=== PATIENT | female | born 1945 | race Caucasian/White ===

== ENCOUNTER → 2016-03-31 | Outpatient (CLI) | payer OTHER ==
--- NOTE | 2016-03-31 09:50 | CT ---
CT Right Lower Extremity With Attention Right Hip March 31, 2016 0915 hours History: Preoperative evaluation for right hip arthroplasty. Pain. Technique: Spiral imaging was obtained through the right hip at 1.25 mm slice thickness along with sp iral imaging through the right knee at 2.5 mm slice thickness. Data was transmitted for subsequent [facility] hip replacement. Dose reduction techniques were performed. Findings: The right hip joint demonstrates severe hip joint space narrowing with osteophyte formation , subchondral cyst formation, and hip joint space narrowing. 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 Prior pin tracts are present in the femoral head and neck T he musculature about the hips is normal in appearance. The visualized pelvic structures are normal in appearance. Imaging through the knees demonstrates mild degenerative joint disease. The musculature about the kn ees appears to be normal. Impression: Degenerative changes about the right hip, as detailed above. Central cortical collapse is present consistent with AVN, in the region of the prior pin tracts for previous hip pinning. Data tr ansmitted for subsequent [facility] hip replacement surgery. I reviewed this with Dr. Maverick Jj who agrees with the above findings. A message was left with the [employer] medical billing manager March 31, 2016 0951 hours
== END ==
LOC: FIMAGING 08:51
PROVIDERS: ATTEND Physician Assistant
DX: Z01.818 Encounter for other preprocedural examination (principal); M16.11 Unilateral primary osteoarthritis, right hip

== ENCOUNTER 2016-04-21 08:52 | Inpatient (IN) | payer OTHER ==
[~2016-04-21 08:52] MED LIST: BACITRACIN 50,000 UNITS/10 ML SYR IRR ONE; CITRATE DEXTROSE SOLN 500 ML BAG ONE; POLYMYXIN B SULFATE 500,000 UNIT/10 ML SYR IRR ONE
[2016-04-21] MEDS ORDERED: ROPI/epiNEPH/KETOROLAC/morphINE JOINT COCKTAIL IU ONE (09:30)
[2016-04-21] MEDS ORDERED: CEFAZOLIN 2 GM/DEXTR 100 ML IV ONE (09:30)
[2016-04-21] MEDS ORDERED: ACETAMINOPHEN 325 MG TAB PO ONE (09:30)
[2016-04-21] MEDS ORDERED: FAMOTIDINE 20 MG TAB PO ONE (09:30)
[2016-04-21] MEDS ORDERED: CHLORHEXIDINE GLUC HIBICLENS 118 ML BTL TP ONE (09:30)
[2016-04-21] MEDS ORDERED: LIDOCAINE 1% 5 ML SDV ONE (09:49)
[2016-04-21] MEDS ORDERED: ONDANSETRON 4 MG/2 ML VIAL IVP PRN (10:22)
[2016-04-21] MEDS ORDERED: DIAZEPAM 5 MG TAB PO PRN (10:22)
[2016-04-21] MEDS ORDERED: MAGNESIUM HYDROXIDE 30 ML UDCUP PO PRN (10:22)
[2016-04-21] MEDS ORDERED: DIPHENOXYLATE/ATROPINE LOMOTIL 1 TAB PO PRN (10:22)
[2016-04-21] MEDS ORDERED: PHARMACY PAIN CONSULT 1 EA MISC PRN (10:22)
[2016-04-21] MEDS ORDERED: LACTULOSE 20 GM/30 ML UDCUP PO PRN (10:22)
[2016-04-21] MEDS ORDERED: ONDANSETRON DISINTEGRATING 4 MG TAB PO PRN (10:22)
[2016-04-21] MEDS ORDERED: PROMETHAZINE HCL 25 MG SUPPR PR PRN (10:22)
[2016-04-21] MEDS ORDERED: diphenhydrAMINE 25 MG CAP PO PRN (10:22)
[2016-04-21] MEDS ORDERED: METOCLOPRAMIDE 10 MG/2 ML VIAL IVP PRN (10:22)
[2016-04-21] MEDS ORDERED: PROMETHAZINE HCL 25 MG/ML INJ IVP PRN (10:22)
[2016-04-21] MEDS ORDERED: BISACODYL 10 MG SUPP PR PRN (10:22)
[2016-04-21] MEDS ORDERED: traMADol 50 MG TAB PO PRN (10:22)
[2016-04-21] MEDS ORDERED: TEMAZEPAM 15 MG CAP PO PRN (10:22)
[2016-04-21] MEDS ORDERED: LR 1,000 ML IV ONE (10:22)
[2016-04-21] MEDS ORDERED: POLYETHYLENE GLYCOL 3350 17 GM PKT PO PRN (10:22)
[2016-04-21] MEDS ORDERED: ZOLPIDEM TARTRATE 5 MG TAB PO PRN (10:23)
[2016-04-21] MEDS ORDERED: LR 1,000 ML IV SCH (10:30)
[2016-04-21] MEDS ORDERED: MIDAZOLAM 2 MG/2 ML VIAL ONE (11:05)
[2016-04-21] MEDS ORDERED: fentaNYL 100 MCG/2 ML INJ ONE ×3 (11:19→13:30)
[2016-04-21] MEDS ORDERED: PROPOFOL/EMULSION 500 MG/50 ML BOTTLE IV ONE (11:55)
[2016-04-21] MEDS ORDERED: DEXAMETHASONE 4 MG/ML VIAL ONE (12:58)
[2016-04-21] MEDS ORDERED: ONDANSETRON 4 MG/2 ML VIAL ONE (12:58)
[2016-04-21] MEDS ORDERED: LABETALOL HCL 5 MG/ML 20 ML MDV ONE (13:42)
[2016-04-21] MEDS ORDERED: HYDROmorphONE/DILAUDID 2 MG/ML SYR ONE (13:51)
[2016-04-21] MEDS ORDERED: DIAZEPAM 5 MG TAB ONE (14:05)
--- NOTE | 2016-04-21 14:07 | DX ---
AP Pelvis. Reason for examination: Postoperative follow up right hip arthroplasty. Findings: Postoperative changes of recent total right hip arthroplasty are noted. The bone alignment is satisfactory and no complicating process is seen. A surgical drain is in place. Impression: Recent total right hip arthroplasty.
--- NOTE | 2016-04-21 15:15 | DX ---
Fluoroscopy provided for hip arthroplasty 1354 hours Indication: Right total hip arthroplasty Fluoroscopy time: 1.3 seconds. Dose: 0.15 mGy Technique: Fluoroscopy and single AP intraoperative view. Findings: The single view reveals a well seated right total hip arthroplasty. Impression: Fluoroscopy provided for intraoperative guidance.
[2016-04-21] MEDS: ACETAMINOPHEN 325 MG TAB PO SCH ×3 (16:11→23:40)
[2016-04-21] MEDS ORDERED: metFORMIN SR 500 MG TAB PO SCH (17:00)
[2016-04-21] MEDS: oxyCODONE IR 5 MG TAB PO PRN ×3 (17:15→21:15)
[2016-04-21] MEDS: CYCLOBENZAPRINE 10 MG TAB PO PRN (17:15)
[2016-04-21] MEDS: ceFAZolin 2 GM in D5W 100 ML IV SCH (18:45)
[2016-04-21] MEDS ORDERED: ceFAZolin 2 GM/DEXTROSE 100 ML IV SCH (19:30)
[2016-04-21] MEDS: ASPIRIN 325 MG TAB PO SCH (21:14)
[2016-04-21] MEDS: SENNOSIDES/DOCUSATE SODIUM TAB PO SCH (21:15)
[2016-04-21] MEDS: FAMOTIDINE 20 MG TAB PO SCH (21:21)
[2016-04-22] MEDS: ceFAZolin 2 GM in D5W 100 ML IV SCH (02:04)
[2016-04-22 05:29] LABS: HEMATOCRIT 29.4 % (38.0-47.0); HEMOGLOBIN 9.6 g/dL (12.6-16.3)
[2016-04-22] MEDS: ACETAMINOPHEN 325 MG TAB PO SCH ×2 (05:45→12:18)
[2016-04-22] MEDS: oxyCODONE IR 5 MG TAB PO PRN (05:45)
[2016-04-22] MEDS: CYCLOBENZAPRINE 10 MG TAB PO PRN (05:46)
[2016-04-22 07:34] VITALS: RESP 14; TEMP 97.7
--- NOTE | 2016-04-22 07:35 | PDIAF ---
- Diagnosis Diagnosis: right main Code Status: Full Code - Medication Management Discharge Medications: Medications to Continue on Transfer Atorvastatin Calcium [Lipitor 40 mg (*)] 40 mg PO DAILY 03/14/16 [Last Taken ] Cholecalciferol Vit D3 [Vitamin D3 (*)] 1,000 units PO DAILY 03/14/16 [Last Taken 04/13/16] Herbals/Supplements -Info Only 1 ea PO DAILY 03/14/16 [Last Taken 04/13/16] Hydrocodone/Acetaminophen [Vicodin 5-300 mg Tablet] 1 each PO DAILY PRN [Last Taken 1 Day Ago] Losartan Potassium [Cozaar 50 mg (*)] 100 mg PO DAILY 03/14/16 [Last Taken 04/17] Metformin HCl [Metformin HCl ER] 1,000 mg PO DAILY 03/14/16 [Last Taken 04/17/16 ] Sertraline HCl [Zoloft 50mg (*)] 12.5 mg PO DAILY 03/14/16 [Last Taken 3 Days Ago] Zolpidem Tartrate [Ambien 5MG (*)] 5 mg PO HS PRN 03/14/16 [Last Taken 1 Week Ago] Aspirin [Aspirin 325 mg (*)] 325 mg PO DAILY #0 tab 04/22/16 [Last Taken Unknown ] Diazepam [Valium 5 MG (*)] 5 mg PO Q6HRS PRN #40 tab 04/22/16 [Last Taken Unknown] oxyCODONE IR [Oxycodone Ir (*)] 5 - 10 mg PO Q3HRS PRN #70 tab 04/22/16 [Last Taken Unknown] Discharge Medications: Refer to the Discharge Home Medication list for PRN reason. - Orders Services needed: Physical Therapy Diet Recommendation: no restrictions on diet Diet Texture: Regular Texture Diet Activity/Weight Bearing Restrictions: wbat. rom as chava. anterior hip precautions. may shower without bandage. daily dressing change with pressure dressing. f/u at two weeks. seek attn for increasing pain, cp, sob, leg pain, drainage or other focal complaint. marj hose x 2 weeks. aspirin 325 mg po daily - Follow Up Care Current Providers and Referrals: Willy Waterman MD [Primary Care Provider] -
--- NOTE | 2016-04-22 07:36 | SOAPPROG ---
SOAP Progress Note Assessment/Plan: Assessment: right main Plan: dvt precautions d/c home when cleared by pt pain control 04/22/16 07:35 Subjective: doing well slight pain no cp or sob Objective: Vital Signs Temp Pulse Resp BP Pulse Ox 36.5 C 79 14 105/56 L 95 04/22/16 07:32 04/22/16 07:32 04/22/16 07:32 04/22/16 07:32 04/22/16 07:32 Laboratory Results 04/22/16 04:37 04/21/16 04/22/16 04/23/16 05:59 05:59 05:59 Intake Total 3585 Output Total 375 Balance 3210 dressing intact reinforced after bleeding intact pf,df,ehl toes warm and pink neg homans samuel xrays stable alignment no fx or lucency ICD10 Worksheet Patient Problems: Problems Problem Status Diagnosed Hip arthritis Acute - ICD10 Problem Qualifiers (1) Hip arthritis
[2016-04-22] MEDS: FAMOTIDINE 20 MG TAB PO SCH (08:08)
[2016-04-22] MEDS: ASPIRIN 325 MG TAB PO SCH (08:08)
[2016-04-22] MEDS: SENNOSIDES/DOCUSATE SODIUM TAB PO SCH (08:08)
[2016-04-22] MEDS ORDERED: NON-FORMULARY NEW DRUG (Metformin Hcl [Metformin Hcl Er] 1,000 MG) PO SCH (09:00)
[2016-04-22] MEDS ORDERED: LOSARTAN POTASSIUM 50 MG TAB PO SCH (09:00)
[2016-04-22] MEDS ORDERED: ATORVASTATIN CALCIUM 40 MG TAB PO SCH (09:00)
[2016-04-22] MEDS ORDERED: SERTRALINE HCL 25 MG TAB PO SCH (09:00)
[2016-04-22] MEDS ORDERED: SERTRALINE HCL 50 MG TAB PO SCH (09:00)
[2016-04-22] MEDS ORDERED: CHOLECALCIFEROL VIT D3 1,000 UNITS TAB PO SCH (09:00)
[2016-04-22 11:50] VITALS: BP 121/66; PULSE 67; O2SAT 97
== END 2016-04-22 12:37 | disposition home health service (06) | DRG 470 ==
LOC: F3N 08:52
PROVIDERS: ADMIT Orthopaedic Surgery; ATTEND Orthopaedic Surgery
PROC: 8E0Y0CZ Robotic Assisted Procedure of Lower Extremity, Open Approach (ICD-10-PCS; principal; 2016-04-21 10:30)
PROC: 0SR904A Replacement of Right Hip Joint with Ceramic on Polyethylene Synthetic Substitute, Uncemented, Open Approach (ICD-10-PCS; principal; 2016-04-21 10:30)
DX: M16.11 Unilateral primary osteoarthritis, right hip (principal); I10 Essential (primary) hypertension; E11.9 Type 2 diabetes mellitus without complications; E78.5 Hyperlipidemia, unspecified; Z87.891 Personal history of nicotine dependence; Z85.3 Personal history of malignant neoplasm of breast; Z96.652 Presence of left artificial knee joint
CPT/HCPCS: 97116-GP; 97161-GP; 97165-GO; C1713; G8978-GP-CJ; G8979-GP-CI; G8980-GP-CI; G8987-GO-CI; G8988-GO-CI; G8989-GO-CI; J0171; J0690; J1100; J1170; J1885; J2250; J2405; J2704; J2795; J3010; J3490; J7060

== ENCOUNTER → 2016-06-02 | Outpatient (CLI) | payer OTHER | LOC: BMCIMAGING 09:10 | PROVIDERS: ATTEND Physician Assistant | DX: Z09 Encounter for follow-up examination after completed treatment for conditions other than malignant neoplasm (principal); Z96.641 Presence of right artificial hip joint ==

== ENCOUNTER → 2016-10-28 | Outpatient (CLI) | payer OTHER | LOC: FIMAGING 08:39 | PROVIDERS: ATTEND Internal Medicine Hematology & Oncology | DX: N63 Unspecified lump in breast (principal); Z85.3 Personal history of malignant neoplasm of breast | CPT/HCPCS: 76641; G0206 ==

== ENCOUNTER → 2016-11-05 | Outpatient (CLI) | payer OTHER | LOC: BMCIMAGING 10:28 | PROVIDERS: ATTEND Physician Assistant | DX: Z98.890 Other specified postprocedural states (principal) ==

== ENCOUNTER → 2017-03-02 | Outpatient (CLI) | payer OTHER | LOC: FIMAGING 09:52 | PROVIDERS: ATTEND Internal Medicine Hematology & Oncology | DX: Z12.31 Encounter for screening mammogram for malignant neoplasm of breast (principal) | CPT/HCPCS: G0202 ==

== ENCOUNTER → 2017-04-03 | Outpatient (CLI) | payer OTHER | LOC: FIMAGING 14:14 | PROVIDERS: ATTEND Internal Medicine Hematology & Oncology | DX: N63.21 Unspecified lump in the left breast, upper outer quadrant (principal) ==

== ENCOUNTER → 2017-04-20 | Outpatient (CLI) | payer OTHER ==
[~2017-04-20] MED LIST changes: -BACITRACIN 50,000 UNITS/10 ML SYR IRR ONE; +BUPIVACAINE 0.5% 30 ML SDV ONE; -CITRATE DEXTROSE SOLN 500 ML BAG ONE; +LIDOCAINE 1% 300 MG/30 ML SDV ONE; -POLYMYXIN B SULFATE 500,000 UNIT/10 ML SYR IRR ONE
== END ==
LOC: FIMAGING 07:29
PROVIDERS: ATTEND Internal Medicine Hematology & Oncology
PROC: 0HBU3ZZ Excision of Left Breast, Percutaneous Approach (ICD-10-PCS; principal; 2017-04-20)
DX: N63.21 Unspecified lump in the left breast, upper outer quadrant (principal)

== ENCOUNTER → 2017-05-05 | Outpatient (CLI) | payer OTHER | LOC: FIMAGING 10:30 | PROVIDERS: ATTEND Internal Medicine | DX: J45.909 Unspecified asthma, uncomplicated (principal) ==

== ENCOUNTER → 2018-03-04 | Outpatient (CLI) | payer OTHER | LOC: FIMAGING 08:57 | PROVIDERS: ATTEND Internal Medicine Hematology & Oncology | DX: Z12.31 Encounter for screening mammogram for malignant neoplasm of breast (principal); Z85.3 Personal history of malignant neoplasm of breast ==

== ENCOUNTER → 2018-07-19 | Outpatient (CLI) | payer OTHER | LOC: BMCIMAGING 08:52 | PROVIDERS: ATTEND Orthopaedic Surgery | DX: Z47.1 Aftercare following joint replacement surgery (principal); Z96.641 Presence of right artificial hip joint ==

== ENCOUNTER → 2018-09-09 | Outpatient (CLI) | payer OTHER | LOC: BMCIMAGING 10:52 ==